=== PATIENT | female | born 1975 | race Hispanic/Latino ===

== ENCOUNTER 2023-04-22 03:19 | Emergency (ER) | payer OTHER ==
[~2023-04-22] VITALS: Ht 154.9 cm; Wt 81.6 kg
[2023-04-22 03:20] VITALS: BP 144/65; PULSE 115; RESP 20
[2023-04-22] MEDS ORDERED: ONDANSETRON ODT 4MG TAB SL ONE (03:30)
[2023-04-22] MEDS ORDERED: ACETAMINOPHEN 500 MG TABLET PO ONE (03:30)
[2023-04-22 03:35] VITALS: TEMP 100.8
[2023-04-22 03:50] LABS: RAPID GROUP A STREP negative (NEGATIVE)
[2023-04-22 03:54] LABS: SARS-CoV-2, RNA, NAAT NEGATIVE SARS CoV-2 (NEGATIVE)
[2023-04-22 03:59] LABS: INFLUENZA TYPE B Negative For Type B (NEGATIVE)
[2023-04-22 04:31] LABS: INFLUENZA TYPE A Positive For Type A (NEGATIVE)
== END 2023-04-22 04:26 | disposition left against medical advice (07) ==
LOC: EDH 03:19 → EDBD 03:19 → EDH 04:26
DX: R50.9 Fever, unspecified (principal); R68.2 Dry mouth, unspecified; Z53.21 Procedure and treatment not carried out due to patient leaving prior to being seen by health care provider; Z20.822 Contact with and (suspected) exposure to COVID-19
CPT/HCPCS: 99281; 87635; 87880; 87804 ×2; C9803